=== PATIENT | female | born 1980 | race Caucasian/White ===

== ENCOUNTER 2016-07-03 16:54 | Emergency (ER) | payer MEDICAID ==
[~2016-07-03] VITALS: Ht 154.9 cm; Wt 54.9 kg
[2016-07-03 17:07] VITALS: BP 124/88
[2016-07-03] MEDS ORDERED: cefTRIAXone SOD 1,000 MG VL IM ONE (20:30)
[2016-07-03] MEDS ORDERED: IBUPROFEN 600 MG TAB PO ONE (20:30)
== END 2016-07-03 20:43 | disposition home or self-care (01) ==
LOC: ER 17:04
DX: N39.0 Urinary tract infection, site not specified (principal); R59.9 Enlarged lymph nodes, unspecified; F12.10 Cannabis abuse, uncomplicated; Z87.442 Personal history of urinary calculi; Z98.51 Tubal ligation status
CPT/HCPCS: 96372; 99283; J0696

== ENCOUNTER 2019-04-16 01:54 | Emergency (ER) | payer MEDICAID ==
[~2019-04-16] VITALS: Ht 154.9 cm; Wt 55.8 kg
[2019-04-16 02:16] VITALS: BP 120/87
== END 2019-04-16 03:22 | disposition left against medical advice (07) ==
LOC: ER 01:56
DX: S01.81XA Laceration without foreign body of other part of head, initial encounter (principal); Z53.21 Procedure and treatment not carried out due to patient leaving prior to being seen by health care provider; Y08.89XA Assault by other specified means, initial encounter; Y93.89 Activity, other specified; Y99.8 Other external cause status; Y92.89 Other specified places as the place of occurrence of the external cause

== ENCOUNTER → 2019-08-23 | Emergency (ER) | payer MEDICAID ==
[~2019-08-23] VITALS: Ht 154.9 cm; Wt 58.1 kg
[~2019-08-23] MED LIST: KETOROLAC TROMETH 15 mg/ml 1ML VL IV ONE; KETOROLAC TROMETH 30 MG/ML 1ML VIAL ONE; ONDANSETRON HCL 4 MG/2 ML VIAL IV ONE; SODIUM CHLORIDE 0.9% 500 ML IV ONE; cefTRIAXone 1GM/50ML D5W 50 ML IV ONE
[2019-08-23 22:49] LABS: Basophils # (auto) 0 10 ^3/uL (0-0.2); Basophils % (auto) 0.3 % (0.0-2.0); Eosinophils # (auto) 0 10 ^3/uL (0-0.8); Eosinophils % (auto) 0.1 % (0.0-7.0); Hematocrit 43.2 % (36.0-46.0); Hemoglobin 14.6 g/dL (12.2-16.2); Lymphocytes # (auto) 1.2 10 ^3/uL (0.4-5.4); Lymphocytes % (auto) 8.3 % (10.0-50.0); Mean Corpuscular Hgb Conc. 33.9 g/dL (32.0-36.0); Mean Corpuscular Volume 94.6 fL (80.0-100.0); Monocytes # (auto) 1.1 10 ^3/uL (0-1.3); Monocytes % (auto) 7.7 % (0.0-12.0); Neutrophils # (auto) 11.7 10 ^3/uL (1.6-8.6); Neutrophils % (auto) 83.6 % (37.0-80.0); Platelet Count (auto) 190 10^3/uL (140-450); Red Blood Cells 4.57 10^6/uL (4.0-5.20); Red Cell Distribution Width 13.2 % (11.8-14.3)
[2019-08-23 22:54] VITALS: BP 111/84
[2019-08-23 22:58] LABS: Urine Bacteria MOD /hpf (None Seen); Urine Blood 1+ /uL (Negative); Urine Mucus FEW (None Seen); Urine Specific Gravity 1.015 (1.001-1.035); Urine WBC 108 /hpf (0 - 5); Urine WBC Clumps PRESENT /hpf (None Seen)
[2019-08-23 23:04] LABS: INR 1.06 (0.9-1.15); Partial Thromboplastin Time 29.3 sec (23.64-32.05)
[2019-08-23 23:10] LABS: Albumin 3.7 g/dL (3.4-5.0); BUN/Creatinine Ratio 10.5; Calcium 9.2 mg/dL (8.5-10.1); Potassium 3.9 mmol/L (3.5-5.1)
[2019-08-23 23:13] LABS: Bilirubin, Total 1.2 mg/dL (0.2-1.0); Total Protein 8.6 g/dL (6.4-8.2)
== END | disposition home or self-care (01) ==
LOC: ER 21:40
DX: N39.0 Urinary tract infection, site not specified (principal)
CPT/HCPCS: 36415; 74176; 80053; 81001; 82150; 83690; 83735; 85025; 85610; 85730; 87086; 96365; 96375; 99284; J0696; J1885; J2405; J7030

== ENCOUNTER 2019-12-11 22:30 | Emergency (ER) | payer MEDICAID ==
[~2019-12-11] VITALS: Ht 154.9 cm; Wt 59.0 kg
[2019-12-11 22:55] VITALS: BP 111/81
[2019-12-12] MEDS ORDERED: KETOROLAC TROMETH 60MG/2ML VIAL IM ONE
[2019-12-12] MEDS ORDERED: cefTRIAXone SOD 1,000 MG VL IM ONE
== END 2019-12-12 00:19 | disposition home or self-care (01) ==
LOC: ER 22:30
DX: S80.262A Insect bite (nonvenomous), left knee, initial encounter (principal); L03.116 Cellulitis of left lower limb; W57.XXXA Bitten or stung by nonvenomous insect and other nonvenomous arthropods, initial encounter; Y93.89 Activity, other specified; Y92.89 Other specified places as the place of occurrence of the external cause; Y99.8 Other external cause status
CPT/HCPCS: 96372; 99284; J0696; J1885